=== PATIENT | male | born 1935 | race Caucasian/White ===

== ENCOUNTER → 2019-09-23 09:40 | Outpatient (CLI) | payer BC ==
[2015-04-13 16:13] VITALS: BMI 22.6
[~2019-09-23 09:40] MED LIST: CALCIUM 600 +1 EAC3 PO; PRESERVISION AR1 CAP PO; VITAMIN B COMPL1 TAB PO; ZANTAC150 MG PO
--- NOTE | 2019-09-27 08:06 | EC ---
PATIENT:RIAN ALVARENGA DATE OF SERVICE: 09/23/19 SEX: M MEDICAL RECORD: [id number] DATE OF : 39 LOCATION:[facility] AGE OF PATIENT: 84 ADMISSION DATE: 09/23/19 REFERRING PHYSICIAN: INTERPRETING PHYSICIAN: BEAN SPANN MD ECHOCARDIOGRAM REPORT ECHO CHARGES 4 ECHO COMPLETE Date: 09/23/19 CLINICAL DIAGNOSIS: HEART MURMUR ECHOCARDIOGRAPHIC MEASUREMENTS (adult normal given) AC root (d.<3.7cm) 4.1 cm LV Septum d (<1.2 cm> 1.3 cm Valve Excursion 2.0 cm LV Septum (systole) 1.8 cm Left Atria (s.<4.0cm> 4.3 cm LVPW d(<1.2cm) 1.3 cm RV (d.<2.3cm) 4.2 cm LVPW (sytole) 1.9 cm LV diastole(<5.6CM) 5.3 cm MV E-F(>70mm/sec) cm LV systole 3.3 cm LVOT Diameter 1.9 cm MV exc.(>10mm) 1.4 cm Est.ejection fraction (50-75%) % DOPPLER: LVIT cm/sec A 87.0 cm/sec E 48.0 cm/sec LA cm/sec RVSP 53 mmHg LVOT 81 cm/sec AOP1/2T 665 m/s Asc. Ao 164 cm/sec RVOT 65 cm/sec RA cm/sec PA 82 cm/sec AV Gradient Peak 10.75mmHg AV Mean 5.38 mmHg AV Area 1.7 cm MV Gradient Peak 4.07 mmHg MV Mean 1.17 mmHg MV Area cm COMMENTS: Diving Fisher: 2 KANU BURGER Repulping Supervisor: 3 Dr. Kerr TAPE# PACS Pericardial Effusion N DATE OF SERVICE: Adequate 2D, color flow imaging, spectral Doppler, and M-Mode. LVH is present. LV internal dimensions are normal. Wall motion is normal. EF is greater than or equal 55%. Aortic valve is sclerotic. No evidence of stenosis by Doppler interrogation. Mild AI by color flow imaging. Left atrium is mildly dilated at 4.3 cm. Mitral valve shows no prolapse. Mild MR. Right-sided chambers grossly normal. Moderate TR. ECHOCARDIOGRAM REPORT [id number] RIAN ALVARENGA TRANSINT:[id number] Voice Confirmation ID: [id number] DOCUMENT ID: [id number] BEAN SPANN MD at [id number] CC: [id number] DICTATION DATE: 09/24/19837 PRINCIPAL CLERK: 09/24/19 1135 DEP CLI 09/23/19 [place] [id number] [place] [id number]
== END | disposition home or self-care (01) ==
LOC: D.HCCECHO 06-28 13:00
PROVIDERS: ATTEND Internal Medicine Interventional Cardiology
DX: R01.1 Cardiac murmur, unspecified (principal)